=== PATIENT | female | born 1955 | race Caucasian/White ===

== ENCOUNTER 2016-10-31 07:40 | Emergency (ER) | payer MEDICAID ==
[~2016-10-31] VITALS: Ht 162.6 cm; Wt 72.0 kg
[~2016-10-31 07:40] MED LIST: CLON0.1T14 PO; DILT240C91 PO; DIVA-18 PO; Digoxin PO; LEVE1000 PO; LOSA50TA3 PO; NEBI5TAB3 PO
[2016-10-31 08:35] LABS: BASOPHILS % 0.6 % (0.0-2.0); EOSINOPHILS % 0.6 % (0.0-5.0); HEMATOCRIT. 40.1 % (36.0-48.0); HEMOGLOBIN. 13.5 g/dL (12.0-16.0); LYMPHOCYTES % 31.5 % (20.0-50.0); MEAN CORPUSCULAR HEMOGLOBIN 32.5 pg (28.0-32.0); MEAN CORPUSCULAR VOLUME 96.8 fL (81.0-99.0); MEAN PLATELET VOLUME 7.8 fl (7.4-10.4); MONOCYTES % 13.8 % (2.0-8.0); NEUTROPHILS % 53.5 % (40.0-76.0); PLATELET 184 x1000/uL (130-400); RED BLOOD CELL COUNT 4.14 mill/uL (4.2-5.4); RED CELL DISTRIBUTION WIDTH 14.8 % (11.6-14.6)
[2016-10-31 08:41] LABS: CHLORIDE 109 mEq/L (98-107)
[2016-10-31 08:45] LABS: CARBON DIOXIDE 27 mEq/L (21-32); ETHANOL BLOOD < 10 mg/dL
[2016-10-31 08:52] LABS: PHENOBARBITAL 14.6 ug/mL (15.0-40.0)
[2016-10-31] MEDS ORDERED: PHENOBARBITAL 100MG TABLET PO ONE (10:15)
[2016-10-31] MEDS ORDERED: DIVA500T PO (10:30)
[2016-10-31] MEDS ORDERED: PHENOBARBITAL (10:34)
[2016-10-31] MEDS ORDERED: ATOR20TA65 PO (10:34)
[2016-10-31] MEDS ORDERED: AMLO10TA80 PO (10:34)
[2016-10-31] MEDS ORDERED: PHENOBARBITAL 30 MG TABLET PO NR (10:45)
[2016-10-31] MEDS: PHENOBARBITAL 30 MG TABLET PO NR ×2 (11:12→11:13)
[2016-10-31 12:33] VITALS: BP 156/105
== END 2016-10-31 14:46 | disposition home or self-care (01) ==
LOC: ER 08:02
DX: G40.909 Epilepsy, unspecified, not intractable, without status epilepticus (principal); R41.82 Altered mental status, unspecified; E78.00 Pure hypercholesterolemia, unspecified; I10 Essential (primary) hypertension; Z88.6 Allergy status to analgesic agent; Z88.0 Allergy status to penicillin; Z74.01 Bed confinement status
CPT/HCPCS: 36415; 80053; 80165; 80184; 85025; 99284; G0482; Z7610